=== PATIENT | female | born 1945 | race Caucasian/White ===

== ENCOUNTER → 2017-05-14 | Outpatient (REF) | payer MEDICARE, OTHER ==
[~2017-05-14] MED LIST: CHEW500C2 PO; LISI-542 PO; MAGN30TA2 PO; PROBCAP4 PO; SIMV40TA2 PO; VITA100067 PO; [UNRECOGNIZED DRUG - OTHER]
== END ==
LOC: M SFHCWAGY 13:42
PROVIDERS: ATTEND Nurse Practitioner Women's Health
DX: Z12.72 Encounter for screening for malignant neoplasm of vagina (principal); R87.615 Unsatisfactory cytologic smear of cervix

== ENCOUNTER → 2018-02-06 | Outpatient (REF) | payer MEDICARE, OTHER ==
[2018-02-06 19:57] LABS: FOLATE 22.5 NG/ML; VITAMIN B12 LEVEL 1360 PG/ML
[2018-02-10 14:57] LABS: ALBUMIN 4.38 GM/DL (3.29-5.55); ALBUMIN % 62.6 % (55.8-66.1); ALPHA-1-GLOBULIN % 4.2 % (2.9-4.9); ALPHA-1-GLOBULINS 0.29 GM/DL (0.17-0.41); ALPHA-2-GLOBULINS 0.77 GM/DL (0.42-0.99); BETA-1-GLOBULINS 0.46 GM/DL (0.28-0.60); BETA-1-GLOBULINS % 6.6 % (4.7-7.2); BETA-2-GLOBULINS % 5.7 % (3.2-6.5); GAMMA GLOBULIN % 9.9 % (11.1-18.8); GAMMA GLOBULINS 0.69 GM/DL (0.65-1.58)
== END ==
LOC: M LAB REF 17:42
DX: G62.9 Polyneuropathy, unspecified (principal); D49.89 Neoplasm of unspecified behavior of other specified sites
CPT/HCPCS: 82746

== ENCOUNTER 2018-04-21 11:21 | Day surgery (SDC) | payer MEDICARE, OTHER ==
[2018-04-21] MEDS: NS 1,000 ML IV (07:00)
[2018-04-21] MEDS ORDERED: PROPOFOL 200 MG/20 ML VIAL As Ordered (12:48)
[2018-04-21] MEDS ORDERED: LIDOCAINE 2% INJ 100 MG/5 ML SDV (FOR ANES.) As Ordered (12:48)
== END 2018-04-21 13:33 | disposition home or self-care (01) ==
LOC: M OPP 11:21
DX: Z12.11 Encounter for screening for malignant neoplasm of colon (principal); Z86.010 Personal history of colon polyps; K64.0 First degree hemorrhoids; K57.30 Diverticulosis of large intestine without perforation or abscess without bleeding; I10 Essential (primary) hypertension; E78.5 Hyperlipidemia, unspecified; E03.9 Hypothyroidism, unspecified; K57.32 Diverticulitis of large intestine without perforation or abscess without bleeding; Z87.442 Personal history of urinary calculi; Z79.899 Other long term (current) drug therapy; Z80.51 Family history of malignant neoplasm of kidney; Z80.3 Family history of malignant neoplasm of breast; Z80.8 Family history of malignant neoplasm of other organs or systems
CPT/HCPCS: G0105

== ENCOUNTER → 2018-05-27 | Outpatient (REF) | payer MEDICARE, OTHER ==
[2018-05-30 14:27] LABS: HPV HYBRID CAPTURE II Negative (Negative)
== END ==
LOC: M SFHCWAGY 13:24
DX: Z01.411 Encounter for gynecological examination (general) (routine) with abnormal findings (principal); Z11.51 Encounter for screening for human papillomavirus (HPV); M85.80 Other specified disorders of bone density and structure, unspecified site; M81.0 Age-related osteoporosis without current pathological fracture; Z12.31 Encounter for screening mammogram for malignant neoplasm of breast; Z98.890 Other specified postprocedural states; Z92.0 Personal history of contraception; Z79.890 Hormone replacement therapy
CPT/HCPCS: G0123

== ENCOUNTER → 2018-05-27 | Outpatient (CLI) | payer MEDICARE, OTHER | LOC: M WHC 13:19 | DX: Z12.31 Encounter for screening mammogram for malignant neoplasm of breast (principal); Z98.890 Other specified postprocedural states; Z92.0 Personal history of contraception; Z79.890 Hormone replacement therapy | CPT/HCPCS: 77067 ==

== ENCOUNTER → 2018-05-27 | Outpatient (CLI) | payer MEDICARE, OTHER | LOC: M WHC 13:38 | DX: M85.80 Other specified disorders of bone density and structure, unspecified site (principal); M81.0 Age-related osteoporosis without current pathological fracture | CPT/HCPCS: 77080 ==

== ENCOUNTER → 2019-05-28 | Outpatient (CLI) | payer MEDICARE, OTHER ==
[~2019-05-28] MED LIST changes: +CALC600T31 PO; +FISH7.5C PO; +LEVO25TA5 PO; +MAGN250T7 PO; +MIRA3350 PO; +MULT1TAB10 PO; +PROC2.5C PR; +VITA-110 PO; +XALA0.007 OU
--- NOTE | 2019-05-28 15:29 | REPMRS ---
Patient History The patient states she had a clinical breast exam in 04/2019. Family history of ovarian cancer at age 80 in paternal grandmother, breast cancer at age 75 in maternal grandmother. Benign core biopsy of the left breast. Benign excisional biopsy of both breasts. Took hormonal contraceptives for 6 months. Took estrogen for 2 years. 3D TOMOSYNTHESIS WAS PERFORMED. [facility] lifetime risk for breast cancer is 5.0%. Digital Woman Screen Mammo: May 28, 2019 - Exam #: [id number] Bilateral CC and MLO view(s) were taken. Technologist: Trena Navarrete, Technologist Prior study comparison: May 27, 2018, bilateral digital woman screen mammo performed at [facility]. May 14, 2017, digital woman screen mammo performed at [facility]. FINDINGS: The breast tissue is heterogeneously dense. This may lower the sensitivity of mammography. There has been no change in the appearance of the mammogram from the prior studies. There is a moderate amount of residual fibroglandular tissue which is fairly symmetric. There is no interval development of dominant mass, areas of architectural distortion, or clustered microcalcification typical of malignancy. Assessment: BI-RADS/ACR category 1 mammogram. Negative Mammogram. Recommendation Routine screening mammogram in 1 year (for women over age 40). This mammogram was interpreted with the aid of an FDA-approved computer-aided dectection system. Electronically Signed By: Rupesh Olivera MD 05/28/19 [id number]
== END ==
LOC: M WHC 13:36
PROVIDERS: ATTEND Nurse Practitioner Women's Health
DX: Z01.419 Encounter for gynecological examination (general) (routine) without abnormal findings (principal); Z12.31 Encounter for screening mammogram for malignant neoplasm of breast; Z86.018 Personal history of other benign neoplasm; Z92.0 Personal history of contraception; Z92.23 Personal history of estrogen therapy
CPT/HCPCS: 77063; 77067; G0101

== ENCOUNTER → 2020-04-28 | Outpatient (CLI) | payer MEDICARE, OTHER ==
[~2020-04-28] MED LIST changes: -SIMV40TA2 PO; +SIMV40TA20 PO
--- NOTE | 2020-04-28 14:50 | REPMRS ---
Patient History 3D TOMOSYNTHESIS WAS PERFORMED. The patient states she had a clinical breast exam in 04/2020. Family history of ovarian cancer at age 80 in paternal grandmother, breast cancer at age 75 in maternal grandmother. Benign core biopsy of the left breast. Benign excisional biopsy of both breasts. Took hormonal contraceptives for 6 months. Took estrogen for 2 years. [facility] lifetime risk for breast cancer is 4.7%. JUN Anderson. Digital Woman Screen Mammo: April 28, 2020 - Exam #: [id number] Bilateral CC and MLO view(s) were taken. Technologist: Trena Navarrete, Technologist Prior study comparison: May 28, 2019, bilateral digital woman screen mammo performed at [facility]. May 27, 2018, bilateral digital woman screen mammo performed at [facility]. FINDINGS: The breast tissue is heterogeneously dense. This may lower the sensitivity of mammography. There has been no change in the appearance of the mammogram from the prior studies. There is a moderate amount of residual fibroglandular tissue which is fairly symmetric. There is no interval development of dominant mass, areas of architectural distortion, or clustered microcalcification typical of malignancy. Assessment: BI-RADS/ACR category 1 mammogram. Negative Mammogram. Recommendation Routine screening mammogram in 1 year (for women over age 40). This mammogram was interpreted with the aid of an FDA-approved computer-aided dectection system. Electronically Signed By: Rupesh Olivera MD 04/28/20 1232
== END ==
LOC: M WHC 12:53
PROVIDERS: ATTEND Nurse Practitioner Women's Health
DX: Z01.419 Encounter for gynecological examination (general) (routine) without abnormal findings (principal); Z12.31 Encounter for screening mammogram for malignant neoplasm of breast; Z80.3 Family history of malignant neoplasm of breast; Z86.018 Personal history of other benign neoplasm; Z92.0 Personal history of contraception; Z92.23 Personal history of estrogen therapy
CPT/HCPCS: 77063; 77067; G0101

== ENCOUNTER 2021-03-10 13:28 | Emergency (ER) | payer MEDICARE, OTHER ==
[~2021-03-10] VITALS: Ht 157.5 cm; Wt 85.3 kg
[~2021-03-10 13:28] MED LIST changes: +CALC-362 PO; -CHEW500C2 PO; -LISI-542 PO; +LISI-898 PO
[2021-03-10 19:06] LABS: BASO % 0.4 % (0.0-1.0); EOS # 0.2 10^3/uL (0.0-0.5); EOS % 3.1 % (0.0-3.0); HEMATOCRIT 44.5 % (36.0-47.0); HEMOGLOBIN 14.6 g/dl (12.0-15.5); LYMPH # 1.6 10^3/uL (1.5-5.0); LYMPH % 22.6 % (24.0-44.0); MEAN CORPUSCULAR HEMOGLOBIN 29.6 pg (27.0-33.0); MEAN CORPUSCULAR HGB CONC 32.8 g/dl (32.0-36.5); MEAN CORPUSCULAR VOLUME 90.3 fl (80.0-96.0); MONO # 0.7 10^3/uL (0.0-0.8); MONO % 10.1 % (2.0-8.0); NEUTROPHILS # 4.3 10^3/uL (1.5-8.5); NEUTROPHILS % 63.4 % (36.0-66.0); PLATELET COUNT, AUTOMATED 191 10^3/uL (150-450); RED BLOOD COUNT 4.93 10^6/uL (4.00-5.40); WHITE BLOOD COUNT 6.9 10^3/uL (4.0-10.0)
[2021-03-10 19:31] LABS: BLOOD UREA NITROGEN 14 MG/DL (7-18); CALCIUM LEVEL 9.3 MG/DL (8.8-10.2); CARBON DIOXIDE LEVEL 30 MEQ/L (21-32); CHLORIDE LEVEL 106 MEQ/L (98-107); CK-MB VALUE MASS 1.4 NG/ML (<3.6); CPK CREATINE PHOSPHOKINASE 127 U/L (26-192); CREATININE FOR GFR 0.66 MG/DL (0.55-1.30); GLOMERULAR FILTRATION RATE > 60.0 (>39); GLUCOSE, FASTING 105 MG/DL (70-100); MAGNESIUM LEVEL 2.4 MG/DL (1.8-2.4); POTASSIUM SERUM 3.8 MEQ/L (3.5-5.1); SODIUM LEVEL 140 MEQ/L (136-145); TROPONIN I < 0.02 NG/ML (< 0.10)
--- NOTE | 2021-03-10 20:29 | REPVR ---
PROCEDURE INFORMATION: Exam: CT Cervical Spine Without Contrast Exam date and time: 03/10/2021 7:51 PM Age: 75 years old Clinical indication: Bilateral hand paresthesias TECHNIQUE: Imaging protocol: Computed tomography images of the cervical spine without contrast. Radiation optimization: All CT scans at this facility use at least one of these dose optimization techniques: automated exposure control; mA and/or kV adjustment per patient size (includes targeted exams where dose is matched to clinical indication); or iterative reconstruction. COMPARISON: No relevant prior studies available. FINDINGS: Vertebrae: There is straightening of the normal cervical lordosis may slight levoscoliosis of the cervical spine. There is no fracture in the cervical spine. Incidental note is made of a bone island in the right C6 articular pillar. C2-C3: The disc height is preserved. No disc herniation, spinal canal stenosis, or neural foraminal stenosis is noted. The facet joints are unremarkable. C3-C4: The disc height is preserved. No disc herniation, spinal canal stenosis, or neural foraminal stenosis is noted. There is mild osteoarthritis of the facet joints. C4-C5: There is mild loss of disc height, a 1 mm grade 1 anterolisthesis of C4 on C5 with uncovering of the disc posteriorly, and mild osteoarthritis of the facet joints. No spinal canal stenosis or neural foraminal stenosis is noted. C5-C6: There is moderate loss of disc height, a broad-based posterior disc osteophyte complex, right uncovertebral hypertrophy, and endplate spurs projecting anteriorly. No spinal canal stenosis or neural foraminal stenosis is noted. The facet joints are unremarkable. C6-C7: There is moderate loss of disc height, a broad-based posterior disc osteophyte complex, and endplate spurs projecting anteriorly. No spinal canal stenosis or neural foraminal stenosis is noted. The facet joints are unremarkable. C7-T1: The disc height is preserved. No disc herniation, spinal canal stenosis, or neural foraminal stenosis is noted. The facet joints are unremarkable. T1-T2: The disc height is preserved. No disc herniation, spinal canal stenosis, or neural foraminal stenosis is noted. The facet joints are unremarkable. T2-T3: The disc height is preserved. No disc herniation, spinal canal stenosis, or neural foraminal stenosis is noted. The facet joints are unremarkable. Soft tissues: Unremarkable. No soft tissue fluid collection. Prevertebral Space: No prevertebral soft tissue swelling. Vasculature: There are atherosclerotic calcifications. Lungs: The imaged lung apices are clear. The lungs were not fully imaged. IMPRESSION: 1. Straightening of the normal cervical lordosis, but no fracture in the cervical spine. 2. No significant spinal canal stenosis or neural foraminal stenosis in the cervical spine. Electronically signed by: Fabian King On 03/10/2021 20:28:37 PM
--- NOTE | 2021-03-10 20:29 | REPVR ---
PROCEDURE INFORMATION: Exam: CT Head Without Contrast Exam date and time: 03/10/2021 7:51 PM Age: 75 years old Clinical indication: Bilateral hand paresthesias TECHNIQUE: Imaging protocol: Computed tomography of the head without contrast. Radiation optimization: All CT scans at this facility use at least one of these dose optimization techniques: automated exposure control; mA and/or kV adjustment per patient size (includes targeted exams where dose is matched to clinical indication); or iterative reconstruction. COMPARISON: No relevant prior studies available. FINDINGS: Brain: There is no CT evidence for an acute large vessel territorial infarct. There are non-specific foci of low attenuation in the periventricular and subcortical white matter, which are likely the sequela of chronic small vessel ischemic injury. No acute intracranial hemorrhage is seen. There are small parafalcine lipoma is measuring up to 5 mm. No mass effect, midline shift, or herniation is noted. Cerebral ventricles: The ventricles are mildly dilated in proportion to the sulci, which is compatible with mild generalized cerebral volume loss. Paranasal sinuses: The imaged portions of the sinuses are well aerated. No air-fluid levels are noted in the sinuses. Mastoid air cells: The mastoid air cells are well aerated. Orbital cavity: Incidental note is made of a right lens implant. Bones/joints: The skull is intact. 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 Soft tissues: Unremarkable. IMPRESSION: 1. No acute intracranial abnormality. 2. Mild cerebral atrophy and chronic microangiopathic changes. Electronically signed by: Fabian King On 03/10/2021 20:28:44 PM
[2021-03-10 21:21] VITALS: BP 118/58
--- NOTE | 2021-03-11 12:58 | ECGEPIP ---
[facility] - ED Test Date: 2021-03-10 Pat Name: NGOC WAKEFIELD Department: Room: - Gender: Female Publication Designer: LALY : 1945 Requested By: NITISH Menon Order Number: [id number] Reading MD: Tyler Birch Measurements Intervals Richardson Rate: 50 P: 33 MS: 176 QRS: -16 QRSD: 88 T: 38 QT: 484 QTc: 441 Interpretive Statements Sinus bradycardia POOR R WAVE PROGRESSION NO PRIORS FOR COMPARISON Electronically Signed on 03-11-2021 12:58:29 EDT by Tyler Birch
== END 2021-03-10 21:51 | disposition home or self-care (01) ==
LOC: M ED 13:28
DX: I10 Essential (primary) hypertension (principal); R20.2 Paresthesia of skin; E03.9 Hypothyroidism, unspecified; E78.5 Hyperlipidemia, unspecified; H40.9 Unspecified glaucoma; Z79.899 Other long term (current) drug therapy; Z79.890 Hormone replacement therapy

== ENCOUNTER → 2021-03-24 | Outpatient (REF) | payer MEDICARE, OTHER ==
[2021-03-24 19:17] LABS: IMMUNOGLOBULIN M 21.6 MG/DL (40-230)
[2021-03-28 18:08] LABS: FREE KAPPA LIGHT CHAINS SERUM 13.3 mg/L (3.3-19.4); KAPPA/LAMBDA RATIO SERUM 1.21 (0.26-1.65)
== END ==
LOC: M LAB REF 17:48
PROVIDERS: ATTEND Internal Medicine
DX: G60.9 Hereditary and idiopathic neuropathy, unspecified (principal); D80.1 Nonfamilial hypogammaglobulinemia

== ENCOUNTER → 2021-04-06 | Outpatient (CLI) | payer MEDICARE, OTHER ==
--- NOTE | 2021-04-06 12:02 | REP ---
INDICATION: PAIN. COMPARISON: None. TECHNIQUE: Four views FINDINGS: No acute fracture or destructive osseous lesion. The mortise is intact. IMPRESSION: Within normal limits <Electronically signed by Miguel Guzman > 04/06/21 1155
--- NOTE | 2021-04-06 12:20 | REP ---
INDICATION: PAIN COMPARISON: None TECHNIQUE: Five views FINDINGS: There is tricompartmental marginal osteophytosis but particularly affecting the medial compartment where there is medial compartmental narrowing and subchondral sclerosis. There is no acute fracture, dislocation, or subluxation. IMPRESSION: Chronic changes as described above. <Electronically signed by Miguel Guzman > 04/06/21 [id number]
== END ==
LOC: M PLAIMG 11:12
DX: M25.571 Pain in right ankle and joints of right foot (principal)

== ENCOUNTER → 2021-06-08 | Outpatient (CLI) | payer MEDICARE, OTHER ==
--- NOTE | 2021-06-08 15:51 | REPMRS ---
Patient History The patient states she has not had a clinical breast exam in over a year. Family history of ovarian cancer at age 80 in paternal grandmother, breast cancer at age 75 in maternal grandmother. Benign core biopsy of the left breast. Benign excisional biopsy of both breasts. Took hormonal contraceptives for 6 months. Took estrogen for 2 years. Tomosynthesis is performed. [place] breast density is c. [facility] of [facility].4%. Moderna vaccines 09/29/20 left arm. 10/27/20 left arm. Booster 06/01/21 left arm. Patient states no breast complaints today. Patient has signed MRS History Sheet. Digital Woman Screen Mammo: June 08, 2021 - Exam #: [id number] Bilateral CC and MLO view(s) were taken. Technologist: RT Sophy Prior study comparison: April 28, 2020, bilateral digital woman screen mammo performed at [facility]. May 28, 2019, bilateral digital woman screen mammo performed at [facility]. FINDINGS: The breast tissue is heterogeneously dense. This may lower the sensitivity of mammography. There has been no change in the appearance of the mammogram from the prior studies. There is a moderate amount of residual fibroglandular tissue which is fairly symmetric. There is no interval development of dominant mass, areas of architectural distortion, or clustered microcalcification typical of malignancy. Assessment: BI-RADS/ACR category 1 mammogram. Negative Mammogram. Recommendation Routine screening mammogram in 1 year (for women over age 40). This mammogram was interpreted with the aid of an FDA-approved computer-aided dectection system. Electronically Signed By: Rupesh Olivera MD 06/08/21 [id number]
--- NOTE | 2021-06-08 16:23 | DEXAMM ---
INDICATION: AGE RELATED OSTEOPOROSIS. COMPARISON: 05/27/2018 as well as other prior exams. TECHNIQUE: Bone density was measured using dual-energy x-ray absorptiometry (DEXA). FINDINGS: AP SPINE L1-L4 BMD 1.191 g/cm2 Young Adult T-Score 0.0 Age Matched Z-Score 1.7. LT FEMUR, TOTAL BMD 0.912 g/cm2 Young Adult T-Score -0.8 Age Matched Z-Score 0.9. LT NECK BMD 0.840 g/cm2 Young Adult T-Score -1.4 Age Matched Z-Score 0.4. RT FEMUR, TOTAL BMD 0.906 g/cm2 Young Adult T-Score -0.8 Age Matched Z-Score 0.8. RT NECK BMD 0.866 g/cm2 Young Adult T-Score -1.2 Age Matched Z-Score 0.6. IMPRESSION: There is normal bone density of the spine. There is low bone density of the left hip. There is low bone density of the right hip. The density of the spine has increased 11.2% since the initial exam on 04/02/2000. The density of the spine decreased 1.6% since most recent exam on 05/27/2018. The density of the left hip has decreased 6.9% since initial exam on 04/02/2000. The density of the left hip has decreased 4.3% since most recent exam on 05/27/2018. The density of the right hip has decreased 8.0% since the initial exam on 04/02/2000. The density of the right hip has decreased 3.8% since the most recent exam on 05/27/2018. FOLLOW-UP: Recommendation for the next bone density exam: 2 years. <Electronically signed by Rupesh Olivera > 06/08/21 [id number]
== END ==
LOC: M WHC 14:38
PROVIDERS: ATTEND Internal Medicine
DX: Z12.31 Encounter for screening mammogram for malignant neoplasm of breast (principal); M81.0 Age-related osteoporosis without current pathological fracture

== ENCOUNTER → 2021-12-12 | Outpatient (CLI) | payer MEDICARE, OTHER ==
[~2021-12-12] MED LIST changes: -LISI-898 PO; +LISI5TAB11 PO
[2021-12-12 17:04] LABS: FERRITIN 21 NG/ML (8-252); IRON (FE) 72 UG/DL (50-170); PERCENT SATURATION 21.7 % (13.2-45.0); RHEUMATOID FACTOR QUANT < 10.0 IU/ML (<15.0); THYROID STIMULATING HORMONE 0.779 uIU/ML (0.358-3.740); THYROXINE (T4) 10.3 UG/DL (4.5-12.0); TOTAL IRON BINDING CAPACITY 332 UG/DL (250-450)
[2021-12-12 17:33] LABS: HEMOGLOBIN A1c 5.8 %
== END ==
LOC: M PLALAB 14:06
PROVIDERS: ATTEND Psychiatry & Neurology Neurology
DX: E11.9 Type 2 diabetes mellitus without complications (principal); D50.9 Iron deficiency anemia, unspecified

== ENCOUNTER → 2022-05-21 | Outpatient (REF) | payer MEDICARE, OTHER ==
[~2022-05-21] MED LIST changes: +FISH10005 PO; -FISH7.5C PO
[2022-05-21 14:13] LABS: PERCENT SATURATION 19.1 % (13.2-45.0)
== END ==
LOC: M LAB REF 12:19
PROVIDERS: ATTEND Internal Medicine
DX: D50.9 Iron deficiency anemia, unspecified (principal)

== ENCOUNTER → 2022-12-03 | Outpatient (CLI) | payer MEDICARE, OTHER | LOC: M WHC 13:01 | PROVIDERS: ATTEND Internal Medicine | DX: Z12.31 Encounter for screening mammogram for malignant neoplasm of breast (principal) ==

== ENCOUNTER → 2022-12-05 | Outpatient (REF) | payer MEDICARE, OTHER ==
[2022-12-05 17:46] LABS: PERCENT SATURATION 27.7 % (13.2-45.0)
[2022-12-05 17:48] LABS: FERRITIN 32.7 NG/ML (7.3-270.7)
== END ==
LOC: M LAB REF 16:33
PROVIDERS: ATTEND Internal Medicine
DX: G62.9 Polyneuropathy, unspecified (principal); D50.9 Iron deficiency anemia, unspecified

== ENCOUNTER → 2022-12-20 | Outpatient (CLI) | payer MEDICARE, OTHER | LOC: M WHC 10:21 | PROVIDERS: ATTEND Internal Medicine | DX: Z12.31 Encounter for screening mammogram for malignant neoplasm of breast (principal) | CPT/HCPCS: 76642; 77065; G0279 ==

== ENCOUNTER → 2023-01-01 | Outpatient (CLI) | payer MEDICARE, OTHER ==
[~2023-01-01] MED LIST changes: +**SFHN** SODIUM BICARBONATE 8.4% 10MEQ 10ML VIAL ONE; +CRES20TA2 PO; +LIDOCAINE 1% MDV 20ML VIAL ONE; +TRUL0.5I SC
[2023-01-01 12:32] VITALS: TEMP 98.3
[2023-01-01 13:57] VITALS: BP 122/72; O2SAT 98
== END ==
LOC: M WHCPRO 12:16
PROVIDERS: ATTEND Internal Medicine
DX: C50.211 Malignant neoplasm of upper-inner quadrant of right female breast (principal)

== ENCOUNTER → 2023-03-20 | Outpatient (CLI) | payer MEDICARE, OTHER ==
[~2023-03-20] MED LIST changes: -**SFHN** SODIUM BICARBONATE 8.4% 10MEQ 10ML VIAL ONE; +CALC250T PO; +CIDA500T2 PO; +LETR2.5T2 PO; -LIDOCAINE 1% MDV 20ML VIAL ONE; +LISI20TA37 PO; +NOXI1TAB PO; +ROSU5TAB5 PO; +VITMTA PO; +[UNRECOGNIZED DRUG - OTHER]
== END ==
LOC: M ONCR 13:09
PROVIDERS: ATTEND General Practice
DX: C50.411 Malignant neoplasm of upper-outer quadrant of right female breast (principal); Z71.2 Person consulting for explanation of examination or test findings; Z79.85 Long-term (current) use of injectable non-insulin antidiabetic drugs; Z79.890 Hormone replacement therapy; Z79.899 Other long term (current) drug therapy; Z80.1 Family history of malignant neoplasm of trachea, bronchus and lung; Z80.51 Family history of malignant neoplasm of kidney; Z98.890 Other specified postprocedural states

== ENCOUNTER 2023-03-27 13:34 | Outpatient (RCR) | payer MEDICARE, OTHER | END 2023-03-28 | LOC: M ONCR 13:34 | PROVIDERS: ATTEND General Practice | DX: Z51.0 Encounter for antineoplastic radiation therapy (principal); C50.411 Malignant neoplasm of upper-outer quadrant of right female breast ==

== ENCOUNTER → 2023-11-27 | Outpatient (CLI) | payer MEDICARE, OTHER ==
[~2023-11-27] MED LIST changes: +CO-E200C PO
== END ==
LOC: M PLAIMG 11:29
PROVIDERS: ATTEND Internal Medicine
DX: M25.562 Pain in left knee (principal)

== ENCOUNTER → 2023-12-03 | Outpatient (CLI) | payer MEDICARE, OTHER ==
[~2023-12-03] MED LIST changes: +ROSU5TAB40 PO; -ROSU5TAB5 PO
== END ==
LOC: M ONCR 13:29
PROVIDERS: ATTEND General Practice
DX: Z08 Encounter for follow-up examination after completed treatment for malignant neoplasm (principal); Z85.3 Personal history of malignant neoplasm of breast; Z71.2 Person consulting for explanation of examination or test findings; Z79.811 Long term (current) use of aromatase inhibitors; Z79.85 Long-term (current) use of injectable non-insulin antidiabetic drugs; Z79.899 Other long term (current) drug therapy; Z87.891 Personal history of nicotine dependence; Z88.1 Allergy status to other antibiotic agents; Z88.2 Allergy status to sulfonamides; Z92.3 Personal history of irradiation; Z98.890 Other specified postprocedural states

== ENCOUNTER 2024-04-15 12:04 | Day surgery (SDC) | payer MEDICARE, OTHER ==
[~2024-04-15] VITALS: Ht 157.5 cm; Wt 77.6 kg
[~2024-04-15 12:04] MED LIST changes: +BRIM2OPD; +EXEM25TA PO; +MULTTAB61 PO; +NS 1,000 ML IV ONE; +ROPI0.5T33 PO; +SEMA1PEN2
[2024-04-15] MEDS ORDERED: propofoL 200 MG/20 ML VIAL As Ordered ONE (13:38)
[2024-04-15] MEDS ORDERED: LIDOCAINE 2% 100MG/5ML SDV (FOR ANES.) As Ordered ONE (13:38)
[2024-04-15 13:56] VITALS: TEMP 98.2
[2024-04-15 14:25] VITALS: BP 117/62; O2SAT 94
== END 2024-04-15 14:30 | disposition home or self-care (01) ==
LOC: M OPP 12:04
PROVIDERS: ATTEND Internal Medicine Gastroenterology
DX: Z12.11 Encounter for screening for malignant neoplasm of colon (principal); Z86.010 Personal history of colon polyps; D12.2 Benign neoplasm of ascending colon; K64.0 First degree hemorrhoids; K57.30 Diverticulosis of large intestine without perforation or abscess without bleeding; E11.9 Type 2 diabetes mellitus without complications; I10 Essential (primary) hypertension; E03.9 Hypothyroidism, unspecified; Z79.02 Long term (current) use of antithrombotics/antiplatelets; Z79.84 Long term (current) use of oral hypoglycemic drugs; Z79.890 Hormone replacement therapy; Z79.899 Other long term (current) drug therapy; Z88.2 Allergy status to sulfonamides

== ENCOUNTER → 2025-02-01 | Outpatient (CLI) | payer MEDICARE, OTHER ==
[~2025-02-01] MED LIST changes: +ISOVUE-370 76% 100 ML VIAL As Ordered ONE; -NS 1,000 ML IV ONE; -ROSU5TAB40 PO; +ROSU5TAB49 PO
== END ==
LOC: M RAD 14:37
PROVIDERS: ATTEND Internal Medicine Medical Oncology
DX: C50.912 Malignant neoplasm of unspecified site of left female breast (principal); J98.11 Atelectasis
CPT/HCPCS: 71260; Q9967

== ENCOUNTER → 2025-04-19 | Outpatient (CLI) | payer MEDICARE, OTHER ==
[~2025-04-19] MED LIST changes: -ISOVUE-370 76% 100 ML VIAL As Ordered ONE
== END ==
LOC: M RAD 08:32
PROVIDERS: ATTEND Internal Medicine
DX: K76.89 Other specified diseases of liver (principal)

== ENCOUNTER → 2025-05-07 | Outpatient (CLI) | payer MEDICARE, OTHER | LOC: M RAD 10:39 | PROVIDERS: ATTEND Internal Medicine Medical Oncology | DX: C50.911 Malignant neoplasm of unspecified site of right female breast (principal); M19.011 Primary osteoarthritis, right shoulder; M19.012 Primary osteoarthritis, left shoulder; M17.0 Bilateral primary osteoarthritis of knee; M19.071 Primary osteoarthritis, right ankle and foot; M19.072 Primary osteoarthritis, left ankle and foot; M16.0 Bilateral primary osteoarthritis of hip | CPT/HCPCS: 78306; A9503 ==